=== PATIENT | male | born 1940 | race Caucasian/White ===

== ENCOUNTER 2019-05-30 09:44 | Inpatient (IN) ==
[2019-05-30] MEDS ORDERED: ONDANSETRON 4 MG/2 ML VIAL IV PRN (10:37)
[2019-05-30] MEDS ORDERED: SODIUM CHLORIDE 0.9% 1,000 ML IV PRN ×2 (10:37→10:43)
[2019-05-30] MEDS ORDERED: ACETAMINOPHEN 325 MG TABLET PO PRN (10:37)
[2019-05-30 12:16] LABS: Calcium 8.6 MG/DL (8.5-10.1); Osmolality,Calculated 281.7 MOS/KG (273-304)
[2019-05-30] MEDS ORDERED: FUROSEMIDE 40 MG/4 ML VIAL IV ONE (14:00)
[2019-05-30] MEDS: carvediloL 6.25 MG TABLET PO SCH (17:18)
[2019-05-30] MEDS: NABUMETONE 500 MG TABLET PO SCH (21:56)
[2019-05-30] MEDS: POTASSIUM CHLORIDE 10 MEQ TABLET PO SCH (21:56)
[2019-05-30] MEDS: DOCUSATE SODIUM 100 MG CAPSULE PO SCH (21:56)
[2019-05-30] MEDS: MONTELUKAST 10 MG TABLET PO SCH (21:56)
[2019-05-30] MEDS: PANTOPRAZOLE 40 MG TABLET PO SCH (21:56)
[2019-05-31 05:29] LABS: Basophils % 0.4 % (0.0-0.8); Eosinophils # 0.1 10*3/uL (0.0-0.87); Eosinophils % 1.2 % (0.00-10.9); Hematocrit 23.8 VOL% (42.0-52.0); Hemoglobin 7.8 GM/DL (14.0-18.0); Immature Granulocytes % 0.6 %; Immature Granulocytes Absolute 0.06 #; Lymphocytes # 2.2 10*3/uL (1.4-4.0); Lymphocytes % 20.8 % (21.2-54.2); Mean Corpuscular HGB Conc 32.8 GM/DL (32-36); Mean Corpuscular Volume 82.4 FL (87-102); Mean Platelet Volume 10.9 FL (9.6-12.0); Monocytes % 13.1 % (1.7-12.7); NRBC # 0.02 10*3/uL; Neutrophils % 63.9 % (38.7-73.9); Platelet Count 368 T/CUMM (130-400); Red Blood Count 2.89 MC/CUMM (3.8-5.5); Red Cell Distribution Width 17.8 % (9.3-17.3); White Blood Count 10.7 T/CUMM (4-12)
[2019-05-31] MEDS ORDERED: SODIUM CHLORIDE 0.9% 1,000 ML IV PRN (07:52)
[2019-05-31] MEDS ORDERED: FUROSEMIDE 40 MG/4 ML VIAL IV PRN (07:54)
[2019-05-31] MEDS ORDERED: LACTATED RINGERS 1,000 ML IV SCH (08:00)
[2019-05-31] MEDS ORDERED: LIDOCAINE 2% 5 ML VIAL ONE (09:00)
[2019-05-31] MEDS ORDERED: PANTOPRAZOLE 40 MG TABLET PO SCH (09:00)
[2019-05-31] MEDS ORDERED: propofoL 200 MG/20 ML VIAL IV ONE (09:00)
[2019-05-31] MEDS: IPRATROPIUM 500 MCG/2.5 ML NEB RESP TX SCH ×4 (09:50→19:25)
[2019-05-31] MEDS: PANTOPRAZOLE 40 MG TABLET PO SCH ×2 (13:24→21:14)
[2019-05-31] MEDS: LOSARTAN/HCTZ 50-12.5 MG TABLET PO SCH (13:25)
[2019-05-31] MEDS: DOCUSATE SODIUM 100 MG CAPSULE PO SCH ×2 (13:25→21:09)
[2019-05-31] MEDS: POTASSIUM CHLORIDE 10 MEQ TABLET PO SCH ×2 (13:25→21:09)
[2019-05-31] MEDS: carvediloL 6.25 MG TABLET PO SCH ×3 (13:25→17:02)
[2019-05-31] MEDS: LORATADINE 10 MG TABLET PO SCH (13:25)
[2019-05-31] MEDS: FLUTICASONE 50 MCG NASAL SPRAY 16 GM BOTTLE BOTH NARES SCH (13:25)
[2019-05-31] MEDS: MULTIVITAMIN (OCUVITE) TABLET PO SCH (13:25)
[2019-05-31] MEDS: NABUMETONE 500 MG TABLET PO SCH ×2 (13:25→21:09)
[2019-05-31 21:03] LABS: Basophils % 0.3 % (0.0-0.8); Eosinophils # 0.1 10*3/uL (0.0-0.87); Eosinophils % 0.5 % (0.00-10.9); Hematocrit 25.7 VOL% (42.0-52.0); Hemoglobin 8.6 GM/DL (14.0-18.0); Immature Granulocytes % 0.5 %; Immature Granulocytes Absolute 0.05 #; Lymphocytes # 1.6 10*3/uL (1.4-4.0); Lymphocytes % 14.6 % (21.2-54.2); Mean Corpuscular HGB Conc 33.5 GM/DL (32-36); Mean Corpuscular Volume 84.3 FL (87-102); Mean Platelet Volume 10.5 FL (9.6-12.0); Neutrophils % 68.1 % (38.7-73.9); Platelet Count 353 T/CUMM (130-400); Red Blood Count 3.05 MC/CUMM (3.8-5.5); Red Cell Distribution Width 17.8 % (9.3-17.3); White Blood Count 10.8 T/CUMM (4-12)
[2019-05-31] MEDS: MONTELUKAST 10 MG TABLET PO SCH (21:09)
[2019-05-31 21:32] LABS: Lymphocytes 10 % (20-55); Segmented Neutrophils 81 % (50-85); Total Cells Counted 100
[2019-05-31 21:33] LABS: Anisocytosis 1+; Macrocytosis 1+; Microcytosis Slight; Platelet Estimate Normal
[2019-05-31 21:34] LABS: Reactive Lymphocytes Slight
[2019-06-01 06:26] LABS: Basophils % 0.3 % (0.0-0.8); Eosinophils # 0.2 10*3/uL (0.0-0.87); Eosinophils % 1.7 % (0.00-10.9); Hematocrit 25.4 VOL% (42.0-52.0); Hemoglobin 8.2 GM/DL (14.0-18.0); Immature Granulocytes % 0.6 %; Immature Granulocytes Absolute 0.06 #; Lymphocytes % 20.8 % (21.2-54.2); Mean Corpuscular HGB Conc 32.3 GM/DL (32-36); Mean Corpuscular Volume 84.7 FL (87-102); Mean Platelet Volume 10.7 FL (9.6-12.0); Monocytes % 14.3 % (1.7-12.7); Neutrophils % 62.3 % (38.7-73.9); Platelet Count 331 T/CUMM (130-400); Red Cell Distribution Width 17.6 % (9.3-17.3); White Blood Count 9.6 T/CUMM (4-12)
[2019-06-01 07:05] LABS: Calcium 8.3 MG/DL (8.5-10.1); Osmolality,Calculated 278.8 MOS/KG (273-304)
[2019-06-01] MEDS: IPRATROPIUM 500 MCG/2.5 ML NEB RESP TX SCH ×4 (07:14→19:27)
[2019-06-01] MEDS: LORATADINE 10 MG TABLET PO SCH (10:31)
[2019-06-01] MEDS: LOSARTAN/HCTZ 50-12.5 MG TABLET PO SCH (10:31)
[2019-06-01] MEDS: NABUMETONE 500 MG TABLET PO SCH ×2 (10:31→20:58)
[2019-06-01] MEDS: SIMVASTATIN 80 MG TABLET PO SCH (10:31)
[2019-06-01] MEDS: MULTIVITAMIN (OCUVITE) TABLET PO SCH (10:32)
[2019-06-01] MEDS: carvediloL 6.25 MG TABLET PO SCH ×2 (10:32→17:15)
[2019-06-01] MEDS: POTASSIUM CHLORIDE 10 MEQ TABLET PO SCH ×2 (10:32→21:06)
[2019-06-01] MEDS: PANTOPRAZOLE 40 MG TABLET PO SCH ×2 (10:32→20:58)
[2019-06-01] MEDS: DOCUSATE SODIUM 100 MG CAPSULE PO SCH ×2 (10:32→20:58)
[2019-06-01] MEDS: FLUTICASONE 50 MCG NASAL SPRAY 16 GM BOTTLE BOTH NARES SCH (10:32)
[2019-06-01] MEDS: MONTELUKAST 10 MG TABLET PO SCH (20:58)
[2019-06-02 06:12] LABS: Basophils % 0.3 % (0.0-0.8); Eosinophils # 0.2 10*3/uL (0.0-0.87); Eosinophils % 1.8 % (0.00-10.9); Hematocrit 24.9 VOL% (42.0-52.0); Hemoglobin 8.2 GM/DL (14.0-18.0); Immature Granulocytes % 0.5 %; Immature Granulocytes Absolute 0.05 #; Lymphocytes # 2.1 10*3/uL (1.4-4.0); Lymphocytes % 21.3 % (21.2-54.2); Mean Corpuscular HGB Conc 32.9 GM/DL (32-36); Mean Corpuscular Volume 86.2 FL (87-102); Mean Platelet Volume 10.5 FL (9.6-12.0); Monocytes % 15.6 % (1.7-12.7); Neutrophils % 60.5 % (38.7-73.9); Platelet Count 313 T/CUMM (130-400); Red Blood Count 2.89 MC/CUMM (3.8-5.5); Red Cell Distribution Width 18.2 % (9.3-17.3); White Blood Count 9.7 T/CUMM (4-12)
[2019-06-02 06:34] LABS: Calcium 7.9 MG/DL (8.5-10.1); Osmolality,Calculated 276.8 MOS/KG (273-304)
[2019-06-02] MEDS: IPRATROPIUM 500 MCG/2.5 ML NEB RESP TX SCH ×4 (07:16→19:05)
[2019-06-02 07:44] LABS: Atypical Lymphocytes Few; Eosinophils 2 % (0-10); Hypochromasia 1+; Lymphocytes 20 % (20-55); Microcytosis 1+; Segmented Neutrophils 60 % (50-85); Total Cells Counted 100
[2019-06-02 07:45] LABS: Platelet Estimate Normal; Target Cells Slight
[2019-06-02] MEDS: DOCUSATE SODIUM 100 MG CAPSULE PO SCH ×2 (09:09→21:24)
[2019-06-02] MEDS: FLUTICASONE 50 MCG NASAL SPRAY 16 GM BOTTLE BOTH NARES SCH (09:10)
[2019-06-02] MEDS: PANTOPRAZOLE 40 MG TABLET PO SCH ×2 (09:10→21:24)
[2019-06-02] MEDS: MULTIVITAMIN (OCUVITE) TABLET PO SCH (09:10)
[2019-06-02] MEDS: LORATADINE 10 MG TABLET PO SCH (09:10)
[2019-06-02] MEDS: LOSARTAN/HCTZ 50-12.5 MG TABLET PO SCH (09:10)
[2019-06-02] MEDS: NABUMETONE 500 MG TABLET PO SCH ×2 (09:10→21:24)
[2019-06-02] MEDS: carvediloL 6.25 MG TABLET PO SCH ×2 (09:10→16:31)
[2019-06-02] MEDS: POTASSIUM CHLORIDE 10 MEQ TABLET PO SCH ×2 (09:10→21:24)
[2019-06-02] MEDS ORDERED: BISACODYL 5 MG TABLET PO ONE (12:00)
[2019-06-02] MEDS ORDERED: POLYETHYLENE GLYCOL POWDER 255 GM BOTTLE PO ONE (16:00)
[2019-06-02] MEDS: MONTELUKAST 10 MG TABLET PO SCH (21:24)
[2019-06-03 05:27] LABS: Basophils % 0.3 % (0.0-0.8); Eosinophils # 0.2 10*3/uL (0.0-0.87); Hematocrit 24.9 VOL% (42.0-52.0); Hemoglobin 8.3 GM/DL (14.0-18.0); Immature Granulocytes % 0.5 %; Immature Granulocytes Absolute 0.05 #; Lymphocytes # 1.8 10*3/uL (1.4-4.0); Lymphocytes % 18.7 % (21.2-54.2); Mean Corpuscular HGB Conc 33.3 GM/DL (32-36); Mean Corpuscular Volume 83.8 FL (87-102); Mean Platelet Volume 10.3 FL (9.6-12.0); Monocytes % 14.5 % (1.7-12.7); Platelet Count 322 T/CUMM (130-400); Red Blood Count 2.97 MC/CUMM (3.8-5.5); Red Cell Distribution Width 18.1 % (9.3-17.3); White Blood Count 9.6 T/CUMM (4-12)
[2019-06-03 05:45] LABS: Calcium 8.3 MG/DL (8.5-10.1); Osmolality,Calculated 269.4 MOS/KG (273-304)
[2019-06-03] MEDS ORDERED: MAGNESIUM CITRATE 300 ML BOTTLE PO ONE ×2 (06:00→06:30)
[2019-06-03] MEDS: FLUTICASONE 50 MCG NASAL SPRAY 16 GM BOTTLE BOTH NARES SCH (09:02)
[2019-06-03] MEDS: LOSARTAN/HCTZ 50-12.5 MG TABLET PO SCH (09:03)
[2019-06-03] MEDS: IPRATROPIUM 500 MCG/2.5 ML NEB RESP TX SCH ×4 (09:03→19:53)
[2019-06-03] MEDS: POTASSIUM CHLORIDE 10 MEQ TABLET PO SCH ×2 (09:03→20:53)
[2019-06-03] MEDS: SIMVASTATIN 80 MG TABLET PO SCH (09:03)
[2019-06-03] MEDS: LORATADINE 10 MG TABLET PO SCH (09:03)
[2019-06-03] MEDS: DOCUSATE SODIUM 100 MG CAPSULE PO SCH ×2 (09:03→20:54)
[2019-06-03] MEDS: PANTOPRAZOLE 40 MG TABLET PO SCH ×2 (09:04→20:54)
[2019-06-03] MEDS: MULTIVITAMIN (OCUVITE) TABLET PO SCH (09:04)
[2019-06-03] MEDS: carvediloL 6.25 MG TABLET PO SCH ×2 (09:04→16:56)
[2019-06-03] MEDS: NABUMETONE 500 MG TABLET PO SCH ×2 (09:04→20:53)
[2019-06-03] MEDS ORDERED: propofoL 200 MG/20 ML VIAL IV ONE (15:20)
[2019-06-03] MEDS ORDERED: LIDOCAINE 2% 5 ML VIAL ONE (15:20)
[2019-06-03] MEDS: MONTELUKAST 10 MG TABLET PO SCH (20:54)
[2019-06-04 04:46] LABS: Basophils % 0.2 % (0.0-0.8); Eosinophils # 0.1 10*3/uL (0.0-0.87); Eosinophils % 1.6 % (0.00-10.9); Hematocrit 25.3 VOL% (42.0-52.0); Hemoglobin 8.3 GM/DL (14.0-18.0); Immature Granulocytes % 0.3 %; Immature Granulocytes Absolute 0.03 #; Lymphocytes # 1.6 10*3/uL (1.4-4.0); Lymphocytes % 18.1 % (21.2-54.2); Mean Corpuscular HGB Conc 32.8 GM/DL (32-36); Mean Corpuscular Volume 84.9 FL (87-102); Mean Platelet Volume 11.1 FL (9.6-12.0); Monocytes % 13.2 % (1.7-12.7); Neutrophils % 66.6 % (38.7-73.9); Platelet Count 328 T/CUMM (130-400); Red Blood Count 2.98 MC/CUMM (3.8-5.5); Red Cell Distribution Width 18.3 % (9.3-17.3)
[2019-06-04 05:19] LABS: Calcium 8.4 MG/DL (8.5-10.1)
[2019-06-04] MEDS: IPRATROPIUM 500 MCG/2.5 ML NEB RESP TX SCH (07:31)
[2019-06-04 07:51] VITALS: BP 147/46
[2019-06-04] MEDS: PANTOPRAZOLE 40 MG TABLET PO SCH (09:13)
[2019-06-04] MEDS: POTASSIUM CHLORIDE 10 MEQ TABLET PO SCH (09:13)
[2019-06-04] MEDS: DOCUSATE SODIUM 100 MG CAPSULE PO SCH (09:13)
[2019-06-04] MEDS: LOSARTAN/HCTZ 50-12.5 MG TABLET PO SCH (09:13)
[2019-06-04] MEDS: MULTIVITAMIN (OCUVITE) TABLET PO SCH (09:13)
[2019-06-04] MEDS: carvediloL 6.25 MG TABLET PO SCH (09:14)
[2019-06-04] MEDS: FLUTICASONE 50 MCG NASAL SPRAY 16 GM BOTTLE BOTH NARES SCH (09:14)
[2019-06-04] MEDS: NABUMETONE 500 MG TABLET PO SCH (09:14)
[2019-06-04] MEDS: LORATADINE 10 MG TABLET PO SCH (09:14)
== END 2019-06-04 10:19 | disposition home health service (06) | DRG 812 ==
LOC: N.2E 10:13
PROVIDERS: ADMIT Internal Medicine; ATTEND Internal Medicine
PROC: COLSIRP (2019-06-03 11:05)

== ENCOUNTER 2019-08-14 15:21 | Inpatient (IN) ==
[2019-08-14] MEDS ORDERED: PANTOPRAZOLE 40 MG VIAL IV STA (16:08)
[2019-08-14] MEDS ORDERED: ONDANSETRON 4 MG/2 ML VIAL IV STA (16:08)
[2019-08-14] MEDS ORDERED: SODIUM CHLORIDE 0.9% 1,000 ML IV STA (16:08)
[2019-08-14] MEDS ORDERED: DICYCLOMINE 20 MG/2 ML AMP IM ONE (16:08)
[2019-08-14] MEDS ORDERED: LOPERAMIDE 2 MG CAPSULE PO STA (16:08)
[2019-08-14] MEDS ORDERED: METOCLOPRAMIDE 10 MG/2 ML VIAL IV STA (16:08)
[2019-08-14] MEDS ORDERED: metroNIDAZOLE INJ 500 MG in PREMIX 1 EACH IV STA (16:13)
[2019-08-14 16:24] LABS: Basophils % 0.3 % (0.0-0.8); Eosinophils # 0.1 10*3/uL (0.0-0.87); Eosinophils % 0.5 % (0.00-10.9); Hematocrit 27.2 VOL% (42.0-52.0); Hemoglobin 8.2 GM/DL (14.0-18.0); Immature Granulocytes % 0.8 %; Immature Granulocytes Absolute 0.13 #; Lymphocytes # 1.7 10*3/uL (1.4-4.0); Lymphocytes % 10.7 % (21.2-54.2); Mean Corpuscular HGB Conc 30.1 GM/DL (32-36); Mean Corpuscular Volume 92.5 FL (87-102); Mean Platelet Volume 10.8 FL (9.6-12.0); Monocytes % 9.4 % (1.7-12.7); Neutrophils % 78.3 % (38.7-73.9); Platelet Count 467 T/CUMM (130-400); Red Blood Count 2.94 MC/CUMM (3.8-5.5); Red Cell Distribution Width 19.7 % (9.3-17.3); White Blood Count 15.4 T/CUMM (4-12)
[2019-08-14 16:55] LABS: Alanine Aminotransferase 96 U/L (16-61); Albumin 1.6 G/DL (3.4-5.0); Alkaline Phosphatase 368 U/L (45-117); Amylase 25 U/L (25-115); Aspartate Amino Transferase 58 U/L (0-37); Blood Urea Nitrogen 53 MG/DL (7-18); Calcium 8.9 MG/DL (8.5-10.1); Estimated Glom Filtration Rate 51 ML/MIN; Ferritin 1459.1 ng/ml (26-388); Glucose 107 MG/DL (74-106); Osmolality,Calculated 296.1 MOS/KG (273-304); Total Protein 7.6 G/DL (6.4-8.3); Troponin I < 0.015 NG/ML (0.00-0.045)
[2019-08-14] MEDS ORDERED: ENOXAPARIN 80 MG/0.8 ML SYRINGE SUBCUT STA (17:56)
[2019-08-14] MEDS ORDERED: GLUCAGON 1 MG VIAL IM PRN (17:59)
[2019-08-14] MEDS ORDERED: DEXTROSE 10% 250 ML BAG IV PRN (17:59)
[2019-08-14 18:40] LABS: Apearance,Urine CLEAR (Clear); Bacteria,Urine Occasional /HPF (Few); Bilirubin,Urine Negative (Negative); Blood, Urine Negative (Negative); Glucose,Urine (UA) Negative (Negative); Ketones,Urine Negative (Negative); Mucus,Urine Occasional /LPF (Occasional); Nitrite,Urine Negative (Negative); Protein,Urine Negative; RBC,Urine 1 /HPF (0-4); Squamous Epithelial Cell,Urine Occasional /HPF (0-10); Urine Color Yellow (Yellow); Urine Specific Gravity 1.016 (1.001-1.035); Urine Urobilinogen < 2.0 EU/DL (0.2-1.0); WBC,Urine 2 /HPF (0-6)
[2019-08-14] MEDS: ALBUTEROL/IPRATROPIUM 3 ML NEB RESP TX SCH (20:54)
[2019-08-14] MEDS: SODIUM CHLORIDE 0.45% 1,000 ML IV SCH (22:48)
[2019-08-14] MEDS: DICYCLOMINE 20 MG TABLET PO SCH (22:48)
[2019-08-14] MEDS: MONTELUKAST 10 MG TABLET PO SCH (22:48)
[2019-08-14] MEDS: CIPROFLOXACIN INJ 400 MG in PREMIX 1 EACH IV SCH (22:48)
[2019-08-14] MEDS: PANTOPRAZOLE 40 MG TABLET PO SCH (22:48)
[2019-08-14] MEDS: INSULIN REGULAR 100 UNIT/ML SUBCUT SCH (22:48)
[2019-08-15] MEDS: ALBUTEROL/IPRATROPIUM 3 ML NEB RESP TX SCH (00:45)
[2019-08-15] MEDS: metroNIDAZOLE INJ 500 MG in PREMIX 1 EACH IV SCH ×4 (00:45→20:40)
[2019-08-15 06:04] LABS: Basophils % 0.3 % (0.0-0.8); Eosinophils # 0.1 10*3/uL (0.0-0.87); Eosinophils % 1.1 % (0.00-10.9); Hematocrit 23.1 VOL% (42.0-52.0); Hemoglobin 7.1 GM/DL (14.0-18.0); Immature Granulocytes % 1.1 %; Immature Granulocytes Absolute 0.14 #; Lymphocytes # 1.8 10*3/uL (1.4-4.0); Lymphocytes % 13.2 % (21.2-54.2); Mean Corpuscular HGB Conc 30.7 GM/DL (32-36); Mean Corpuscular Volume 93.1 FL (87-102); Mean Platelet Volume 10.8 FL (9.6-12.0); Monocytes % 9.1 % (1.7-12.7); Neutrophils % 75.2 % (38.7-73.9); Platelet Count 440 T/CUMM (130-400); Red Blood Count 2.48 MC/CUMM (3.8-5.5); Red Cell Distribution Width 19.9 % (9.3-17.3); White Blood Count 13.2 T/CUMM (4-12)
[2019-08-15 06:31] LABS: Albumin 1.5 G/DL (3.4-5.0); Bilirubin,Total 0.6 MG/DL (0.2-1.0); Calcium 8.6 MG/DL (8.5-10.1); Osmolality,Calculated 294.1 MOS/KG (273-304); Total Protein 6.9 G/DL (6.4-8.3)
[2019-08-15] MEDS ORDERED: SODIUM CHLORIDE 0.9% 1,000 ML IV PRN (08:09)
[2019-08-15] MEDS ORDERED: FUROSEMIDE 40 MG/4 ML VIAL IV PRN (08:09)
[2019-08-15] MEDS: DICYCLOMINE 20 MG TABLET PO SCH ×3 (08:54→20:40)
[2019-08-15] MEDS: carvediloL 6.25 MG TABLET PO SCH ×2 (08:54→17:27)
[2019-08-15] MEDS: LOSARTAN/HCTZ 50-12.5 MG TABLET PO SCH (08:54)
[2019-08-15] MEDS: PANTOPRAZOLE 40 MG TABLET PO SCH ×2 (08:54→20:40)
[2019-08-15] MEDS: CIPROFLOXACIN INJ 400 MG in PREMIX 1 EACH IV SCH ×2 (08:55→21:40)
[2019-08-15] MEDS: INSULIN REGULAR 100 UNIT/ML SUBCUT SCH ×4 (10:50→20:56)
[2019-08-15] MEDS: FLUTICASONE 50 MCG NASAL SPRAY 16 GM BOTTLE BOTH NARES SCH (14:07)
[2019-08-15] MEDS: SODIUM CHLORIDE 0.45% 1,000 ML IV SCH (20:40)
[2019-08-15] MEDS: MONTELUKAST 10 MG TABLET PO SCH (20:40)
[2019-08-15] MEDS ORDERED: HALOPERIDOL 5 MG/ML AMP IM STA ×2 (20:53→23:05)
[2019-08-16] MEDS: metroNIDAZOLE INJ 500 MG in PREMIX 1 EACH IV SCH ×4 (02:00→18:23)
[2019-08-16 06:13] LABS: Basophils % 0.4 % (0.0-0.8); Eosinophils # 0.1 10*3/uL (0.0-0.87); Eosinophils % 1.1 % (0.00-10.9); Hemoglobin 8.2 GM/DL (14.0-18.0); Immature Granulocytes % 1.1 %; Immature Granulocytes Absolute 0.12 #; Lymphocytes # 1.5 10*3/uL (1.4-4.0); Lymphocytes % 13.8 % (21.2-54.2); Mean Corpuscular HGB Conc 31.5 GM/DL (32-36); Mean Corpuscular Volume 91.5 FL (87-102); Mean Platelet Volume 10.8 FL (9.6-12.0); Neutrophils % 71.6 % (38.7-73.9); Platelet Count 369 T/CUMM (130-400); Red Blood Count 2.84 MC/CUMM (3.8-5.5); Red Cell Distribution Width 18.6 % (9.3-17.3); White Blood Count 10.9 T/CUMM (4-12)
[2019-08-16 06:38] LABS: Albumin 1.4 G/DL (3.4-5.0); Bilirubin,Total 0.7 MG/DL (0.2-1.0); Calcium 8.6 MG/DL (8.5-10.1); Total Protein 6.4 G/DL (6.4-8.3)
[2019-08-16] MEDS ORDERED: HALOPERIDOL 5 MG/ML AMP IM PRN ×2 (08:03→08:56)
[2019-08-16] MEDS ORDERED: HALOPERIDOL 5 MG/ML AMP IV PRN (08:55)
[2019-08-16] MEDS: INSULIN REGULAR 100 UNIT/ML SUBCUT SCH ×4 (08:57→21:00)
[2019-08-16] MEDS: CIPROFLOXACIN INJ 400 MG in PREMIX 1 EACH IV SCH ×2 (10:00→20:15)
[2019-08-16] MEDS: PANTOPRAZOLE 40 MG TABLET PO SCH ×2 (10:02→22:00)
[2019-08-16] MEDS: MULTIVITAMIN (CENTRUM) TABLET PO SCH (10:02)
[2019-08-16] MEDS: SODIUM CHLORIDE 0.45% 1,000 ML IV SCH (10:02)
[2019-08-16] MEDS: carvediloL 6.25 MG TABLET PO SCH ×2 (10:02→17:04)
[2019-08-16] MEDS: LOSARTAN/HCTZ 50-12.5 MG TABLET PO SCH (10:02)
[2019-08-16] MEDS: DICYCLOMINE 20 MG TABLET PO SCH ×3 (10:02→22:00)
[2019-08-16] MEDS: FLUTICASONE 50 MCG NASAL SPRAY 16 GM BOTTLE BOTH NARES SCH (10:07)
[2019-08-16] MEDS: ALBUTEROL/IPRATROPIUM 3 ML NEB RESP TX SCH (12:11)
[2019-08-16] MEDS ORDERED: ONDANSETRON ODT 4 MG TABLET PO SCH (14:00)
[2019-08-16] MEDS ORDERED: TUBERCULIN SKIN TEST 0.1 ML SYRINGE INTRADERM ONE (15:00)
[2019-08-16] MEDS ORDERED: SIMVASTATIN 80 MG TABLET PO SCH (21:00)
[2019-08-16] MEDS: POTASSIUM CHLORIDE 10 MEQ TABLET PO SCH (22:00)
[2019-08-16] MEDS: MONTELUKAST 10 MG TABLET PO SCH (22:00)
[2019-08-16] MEDS: FERROUS SULFATE 325 MG TABLET PO SCH (22:00)
[2019-08-16] MEDS: ENOXAPARIN 40 MG/0.4 ML SYRINGE SUBCUT SCH (22:05)
[2019-08-17] MEDS: metroNIDAZOLE INJ 500 MG in PREMIX 1 EACH IV SCH ×4 (01:20→21:30)
[2019-08-17 06:13] LABS: Basophils % 0.3 % (0.0-0.8); Eosinophils # 0.1 10*3/uL (0.0-0.87); Eosinophils % 0.8 % (0.00-10.9); Hematocrit 24.6 VOL% (42.0-52.0); Immature Granulocytes % 0.8 %; Immature Granulocytes Absolute 0.09 #; Lymphocytes # 1.6 10*3/uL (1.4-4.0); Lymphocytes % 14.8 % (21.2-54.2); Mean Corpuscular HGB Conc 32.5 GM/DL (32-36); Mean Corpuscular Volume 88.2 FL (87-102); Mean Platelet Volume 11.1 FL (9.6-12.0); Monocytes % 11.9 % (1.7-12.7); Neutrophils % 71.4 % (38.7-73.9); Platelet Count 354 T/CUMM (130-400); Red Blood Count 2.79 MC/CUMM (3.8-5.5); Red Cell Distribution Width 18.6 % (9.3-17.3); White Blood Count 10.8 T/CUMM (4-12)
[2019-08-17 06:26] LABS: Albumin 1.3 G/DL (3.4-5.0); Bilirubin,Total 0.6 MG/DL (0.2-1.0); Total Protein 6.2 G/DL (6.4-8.3)
[2019-08-17] MEDS: MULTIVITAMIN (CENTRUM) TABLET PO SCH (08:10)
[2019-08-17] MEDS: POTASSIUM CHLORIDE 10 MEQ TABLET PO SCH ×2 (08:10→20:58)
[2019-08-17] MEDS: DICYCLOMINE 20 MG TABLET PO SCH ×3 (08:10→20:58)
[2019-08-17] MEDS: ASCORBIC ACID 500 MG TABLET PO SCH (08:10)
[2019-08-17] MEDS: PANTOPRAZOLE 40 MG TABLET PO SCH ×2 (08:10→20:58)
[2019-08-17] MEDS: FERROUS SULFATE 325 MG TABLET PO SCH ×2 (08:10→20:58)
[2019-08-17] MEDS: LOSARTAN/HCTZ 50-12.5 MG TABLET PO SCH (08:10)
[2019-08-17] MEDS: SODIUM CHLORIDE 0.45% 1,000 ML IV SCH ×3 (08:36→21:04)
[2019-08-17] MEDS: INSULIN REGULAR 100 UNIT/ML SUBCUT SCH ×4 (08:37→21:00)
[2019-08-17] MEDS: CIPROFLOXACIN INJ 400 MG in PREMIX 1 EACH IV SCH ×2 (08:37→20:59)
[2019-08-17] MEDS ORDERED: VIT C VIT E COPPER ZINC LUTEIN PO SCH (09:00)
[2019-08-17] MEDS: carvediloL 6.25 MG TABLET PO SCH ×2 (09:01→16:40)
[2019-08-17] MEDS: SPIRIVA INH SCH (09:03)
[2019-08-17] MEDS: FLUTICASONE 50 MCG NASAL SPRAY 16 GM BOTTLE BOTH NARES SCH (13:07)
[2019-08-17] MEDS: ENOXAPARIN 40 MG/0.4 ML SYRINGE SUBCUT SCH (20:58)
[2019-08-17] MEDS: MONTELUKAST 10 MG TABLET PO SCH (20:58)
[2019-08-18] MEDS: metroNIDAZOLE INJ 500 MG in PREMIX 1 EACH IV SCH ×2 (01:49→06:42)
[2019-08-18 06:11] LABS: Basophils % 0.3 % (0.0-0.8); Eosinophils # 0.1 10*3/uL (0.0-0.87); Eosinophils % 0.8 % (0.00-10.9); Hematocrit 25.5 VOL% (42.0-52.0); Hemoglobin 7.9 GM/DL (14.0-18.0); Immature Granulocytes % 1.1 %; Immature Granulocytes Absolute 0.13 #; Lymphocytes # 1.5 10*3/uL (1.4-4.0); Lymphocytes % 12.7 % (21.2-54.2); Mean Corpuscular Volume 89.8 FL (87-102); Mean Platelet Volume 10.6 FL (9.6-12.0); Monocytes % 13.5 % (1.7-12.7); Neutrophils % 71.6 % (38.7-73.9); Platelet Count 349 T/CUMM (130-400); Red Blood Count 2.84 MC/CUMM (3.8-5.5); Red Cell Distribution Width 18.3 % (9.3-17.3); White Blood Count 11.5 T/CUMM (4-12)
[2019-08-18 06:31] LABS: Albumin 1.3 G/DL (3.4-5.0); Bilirubin,Total 0.5 MG/DL (0.2-1.0); Osmolality,Calculated 282.7 MOS/KG (273-304); Total Protein 6.3 G/DL (6.4-8.3)
[2019-08-18] MEDS: INSULIN REGULAR 100 UNIT/ML SUBCUT SCH ×2 (08:52→11:28)
[2019-08-18] MEDS: SODIUM CHLORIDE 0.45% 1,000 ML IV SCH (08:52)
[2019-08-18] MEDS: carvediloL 6.25 MG TABLET PO SCH (09:47)
[2019-08-18] MEDS: CIPROFLOXACIN INJ 400 MG in PREMIX 1 EACH IV SCH (09:47)
[2019-08-18] MEDS: LOSARTAN/HCTZ 50-12.5 MG TABLET PO SCH (09:48)
[2019-08-18] MEDS: MULTIVITAMIN (CENTRUM) TABLET PO SCH (09:48)
[2019-08-18] MEDS: SPIRIVA INH SCH (09:48)
[2019-08-18] MEDS: FERROUS SULFATE 325 MG TABLET PO SCH (09:48)
[2019-08-18] MEDS: ASCORBIC ACID 500 MG TABLET PO SCH (09:48)
[2019-08-18] MEDS: DICYCLOMINE 20 MG TABLET PO SCH (09:48)
[2019-08-18] MEDS: FLUTICASONE 50 MCG NASAL SPRAY 16 GM BOTTLE BOTH NARES SCH (09:48)
[2019-08-18] MEDS: POTASSIUM CHLORIDE 10 MEQ TABLET PO SCH (09:48)
[2019-08-18] MEDS: PANTOPRAZOLE 40 MG TABLET PO SCH (09:48)
[2019-08-18 12:04] VITALS: BP 104/43
== END 2019-08-18 12:35 | disposition home or self-care (01) | DRG 392 ==
LOC: N.ED 15:21 → N.EDINP 15:21 → N.2E 19:45 → N.3E 08-17 19:46
PROVIDERS: ADMIT Internal Medicine; ATTEND Internal Medicine